=== PATIENT | male | born 1930 | race Caucasian/White ===

== ENCOUNTER 2018-05-17 12:27 | Emergency (ER) | payer OTHER ==
[~2018-05-17] VITALS: Ht 182.9 cm; Wt 78.5 kg
[~2018-05-17 12:27] MED LIST: ACET325 PO; ASPI325 PO; ASPI325EC PO; ATOR20 PO; ATOR40TA PO; Antivert12.5 MG PO; B Complete1 EACH PO; B-121000 MC2 PO; BETA1 PO; BUDE6HFA; BUDE6HFA INH; CALMAGZIN PO; CITA20 PO; Coumadin5 MG PO; Fabb Tablet1 EACH PO; I VITE PROTECT PO; MELA3 PO; MOME220I IH; PRED1SU OD; Prednisone20 MG PO; UBID10 PO; VIT1CAPS12 PO; WARF7.5 PO; Zithromax250 MG PO
[2018-05-17] MEDS ORDERED: Robaxin500 MG PO (14:47)
[2018-05-17] MEDS ORDERED: HYDR1TAB94 PO (14:47)
== END 2018-05-17 15:21 | disposition home or self-care (01) ==
LOC: ER 12:27
DX: S09.90XA Unspecified injury of head, initial encounter (principal); S22.41XA Multiple fractures of ribs, right side, initial encounter for closed fracture; Z88.6 Allergy status to analgesic agent; Z88.5 Allergy status to narcotic agent; Z79.899 Other long term (current) drug therapy; W01.0XXA Fall on same level from slipping, tripping and stumbling without subsequent striking against object, initial encounter
CPT/HCPCS: 70450; 71101; 72125; 99284-25

== ENCOUNTER 2018-08-30 07:42 | Emergency (ER) | payer OTHER ==
[~2018-08-30] VITALS: Ht 182.9 cm; Wt 77.1 kg
[~2018-08-30 07:42] MED LIST changes: +HYDR1TAB94 PO; +Robaxin500 MG PO
[2018-08-30] MEDS ORDERED: LO-DOSE ASPIRIN81 MG PO (08:07)
[2018-08-30 08:35] LABS: BASOPHILS ABSOLUTE AUTO 0.05 K/mm3 (0.00-0.23); BASOPHILS PERCENT AUTO 1 % (0-2); EOSINOPHILS ABSOLUTE AUTO 0.14 K/mm3 (0.00-0.68); EOSINOPHILS PERCENT AUTO 2 % (0-6); Hematocrit 40.1 % (37.0-53.0); Hemoglobin 13.4 g/dL (13.5-17.5); IMMATURE GRAN ABSOLUTE AUTO 0.01 K/mm3 (0.00-0.10); IMMATURE GRAN PERCENT AUTO 0 % (0-1); LYMPHOCYTES ABSOLUTE AUTO 1.95 K/mm3 (0.84-5.20); LYMPHOCYTES PERCENT AUTO 33 % (21-46); MONOCYTES ABSOLUTE AUTO 0.66 K/mm3 (0.16-1.47); MONOCYTES PERCENT AUTO 11 % (4-13); Mean Corpuscular HGB 33.3 pg (26.0-34.0); Mean Corpuscular HGB Conc 33.4 g/dL (31.5-36.5); Mean Corpuscular Volume 100 fL (80-100); Mean Platelet Volume 10.5 fL (9.1-12.4); NEUTROPHILS ABSOLUTE AUTO 3.04 K/mm3 (1.96-9.15); NEUTROPHILS PERCENT AUTO 52 % (41-73); Platelet Count 143 K/mm3 (150-400); RDW Standard Deviation 47.8 fL (35.1-46.3); Red Blood Cell Count 4.02 M/mm3 (4.30-5.90); White Blood Cell Count 5.85 K/mm3 (4.00-11.30)
[2018-08-30 08:48] LABS: Troponin I <0.015 ng/mL (0.000-0.040)
[2018-08-30 08:49] LABS: Alanine Aminotransfer (ALT/SGP 23 U/L (12-78); Albumin, Blood 3.4 g/dL (3.4-5.0); Alk Phos 105 U/L (50-136); Anion Gap 4 mmol/L (6-16); Aspartate Aminotrans (AST/SGOT 20 U/L (12-37); Bilirubin, Total 0.6 mg/dL (0.1-1.0); Blood Urea Nitrogen 17 mg/dL (8-24); Bun/Creatinine Ratio 18.1 (12.0-20.0); CO2, Blood 26 mmol/L (21-32); Calcium, Blood 8.3 mg/dL (8.5-10.1); Chloride, Blood 109 mmol/L (98-108); Creatinine, Blood 0.94 mg/dL (0.60-1.20); Globulin, Blood 3.5 g/dL (2.2-4.0); Glomerular Filtration Rate >60 (60-); Glucose, Blood 89 mg/dL (70-99); Potassium, Blood 4.2 mmol/L (3.5-5.5); Sodium, Blood 139 mmol/L (136-145); Total Protein, Blood 6.9 g/dL (6.4-8.2)
== END 2018-08-30 11:16 | disposition home or self-care (01) ==
LOC: ER 07:42
PROVIDERS: Emergency Medicine
DX: F41.9 Anxiety disorder, unspecified (principal); E86.0 Dehydration; Z95.1 Presence of aortocoronary bypass graft; Z88.6 Allergy status to analgesic agent; Z88.5 Allergy status to narcotic agent; Z79.899 Other long term (current) drug therapy; Z79.82 Long term (current) use of aspirin
CPT/HCPCS: 36415; 71046; 80053; 83690; 83880; 84443; 84484; 85025; 93005; 93010; 96360; 99285-25; J7030

== ENCOUNTER 2019-05-26 10:29 | Inpatient (IN) | payer OTHER ==
[~2019-05-26] VITALS: Ht 182.9 cm; Wt 71.2 kg
[~2019-05-26 10:29] MED LIST changes: -ATOR20 PO; -BUDE6HFA INH; -CALMAGZIN PO; -Fabb Tablet1 EACH PO; -UBID10 PO; -VIT1CAPS12 PO
[2019-05-26 11:45] LABS: BASOPHILS ABSOLUTE AUTO 0.03 K/mm3 (0.00-0.23); BASOPHILS PERCENT AUTO 1 % (0-2); EOSINOPHILS ABSOLUTE AUTO 0.03 K/mm3 (0.00-0.68); EOSINOPHILS PERCENT AUTO 1 % (0-6); Hematocrit 34.5 % (37.0-53.0); Hemoglobin 11.2 g/dL (13.5-17.5); IMMATURE GRAN ABSOLUTE AUTO 0.01 K/mm3 (0.00-0.10); IMMATURE GRAN PERCENT AUTO 0 % (0-1); LYMPHOCYTES ABSOLUTE AUTO 0.75 K/mm3 (0.84-5.20); LYMPHOCYTES PERCENT AUTO 13 % (21-46); MONOCYTES ABSOLUTE AUTO 0.49 K/mm3 (0.16-1.47); MONOCYTES PERCENT AUTO 9 % (4-13); Mean Corpuscular HGB 33.4 pg (26.0-34.0); Mean Corpuscular HGB Conc 32.5 g/dL (31.5-36.5); Mean Corpuscular Volume 103 fL (80-100); Mean Platelet Volume 10.3 fL (9.1-12.4); NEUTROPHILS ABSOLUTE AUTO 4.47 K/mm3 (1.96-9.15); NEUTROPHILS PERCENT AUTO 77 % (41-73); Platelet Count 161 K/mm3 (150-400); RDW Coefficient Variation 13.5 % (11.7-14.2); RDW Standard Deviation 50.9 fL (35.1-46.3); Red Blood Cell Count 3.35 M/mm3 (4.30-5.90); White Blood Cell Count 5.78 K/mm3 (4.00-11.30)
[2019-05-26 12:08] LABS: Alanine Aminotransfer (ALT/SGP 22 U/L (12-78); Albumin, Blood 2.9 g/dL (3.4-5.0); Albumin/Globulin Ratio 0.9 (0.8-1.8); Alk Phos 85 U/L (50-136); Anion Gap 7 mmol/L (6-16); Aspartate Aminotrans (AST/SGOT 20 U/L (12-37); Bilirubin, Total 0.4 mg/dL (0.1-1.0); Blood Urea Nitrogen 14 mg/dL (8-24); Bun/Creatinine Ratio 15.8 (12.0-20.0); CO2, Blood 23 mmol/L (21-32); Calcium, Blood 8.2 mg/dL (8.5-10.1); Chloride, Blood 110 mmol/L (98-108); Creatinine, Blood 0.89 mg/dL (0.60-1.20); Globulin, Blood 3.3 g/dL (2.2-4.0); Glomerular Filtration Rate >60 (60-); Glucose, Blood 117 mg/dL (70-99); Potassium, Blood 4.6 mmol/L (3.5-5.5); Sodium, Blood 140 mmol/L (136-145); Total Protein, Blood 6.2 g/dL (6.4-8.2); Troponin I <0.015 ng/mL (0.000-0.040)
[2019-05-26] MEDS ORDERED: ATOR20 PO (15:05)
[2019-05-26] MEDS ORDERED: VIT1CAPS12 PO (15:05)
[2019-05-26] MEDS ORDERED: BUDE6HFA INH (15:05)
[2019-05-26] MEDS ORDERED: CO Q-10100 MG PO (15:06)
[2019-05-26] MEDS ORDERED: ASPIR 8181 M1 PO (15:07)
[2019-05-26] MEDS ORDERED: ALBU90OI INH (15:08)
[2019-05-26] MEDS ORDERED: CITA20 PO (15:08)
[2019-05-26] MEDS ORDERED: THERA-D2000 UNIT PO (15:09)
[2019-05-26] MEDS ORDERED: VIRT-GARD TABL1 EACH PO (15:12)
[2019-05-26] MEDS ORDERED: Calcium-Magnes1 EAC6 PO (15:13)
[2019-05-26] MEDS ORDERED: LINZESS145 MCG PO (15:22)
[2019-05-26] MEDS ORDERED: MELATONIN 5 MG1 EACH PO (15:23)
--- NOTE | 2019-05-26 18:56 | NUR ---
PT RECEIVED FROM [facility] REPORT RECEIVED FROM ARLEEN COLMENARES, PT IS HERE FOR CHF EXACERBATION AND SOB. PT RECEIVED AT @1825, HRR SINUS TACHY ON 130'S, THE REST OF THE VITALS STABLE. PT ALERT WITH SOME CONFUSION. ABLE TO MAKE NEEDS KNOWN. PT CURRENTLY IN BED AT THIS TIME WITH NO COMPLAINTS. TO REPORT TO ONCOMING SHIFT.
[2019-05-27 04:25] LABS: Anion Gap 5 mmol/L (6-16); Blood Urea Nitrogen 13 mg/dL (8-24); Bun/Creatinine Ratio 11.9 (12.0-20.0); CO2, Blood 28 mmol/L (21-32); Calcium, Blood 8.3 mg/dL (8.5-10.1); Chloride, Blood 107 mmol/L (98-108); Creatinine, Blood 1.09 mg/dL (0.60-1.20); Glomerular Filtration Rate >60 (60-); Glucose, Blood 96 mg/dL (70-99); Sodium, Blood 140 mmol/L (136-145)
--- NOTE | 2019-05-27 07:31 | NUR ---
SHIFT SUMMARY PT A&O; PLEASANT & COMPLIANT W/ CARE; SOME FORGETFULNESS NOTED; VSS; DENIES CHEST PAIN; O2 SATS >93 ON RA; LUNG SOUNDS CLEAR; PT SLEPT SEVERAL HOURS IN BETWEEN INTERVENTIONS; SBA TO BATRHOOM FOR BM; OTHERWISE STANDS AT BEDSIDE FOR URINAL; DENIES NEEDS AT THIS TIME; CALL LIGHT IN REACH; BED IN LOWEST POSITION; REPORT GIVEN TO DAY SHIFT RN.
--- NOTE | 2019-05-27 11:23 | NUR ---
Echocardiogram using 0.50ml of Definity contrast performed.
--- NOTE | 2019-05-27 14:19 | NUR ---
Dual chamber pacemaker interogaton with Dr Acharya present, appears pt in AFIB/Flutter w RVR, pacemaker working normally. Report in Paceart/Hester routed to Dr Castro
[2019-05-27 15:11] LABS: Source, Urine Clean Catch
[2019-05-27 15:20] LABS: Bilirubin, Urine Neg (Neg); Blood, Urine Neg (Neg); Glucose Qualitative, Urine Neg (Neg); Ketones, Urine Neg (Neg); Leukocyte Esterase, Urine Neg (Neg); Nitrite, Urine Neg (Neg); Protein, Urine Neg (Neg); Urobilinogen, Urine NORM (Normal); pH, Urine 6.5 (5.0-8.0)
--- NOTE | 2019-05-27 15:31 | NUR ---
Patient gives this student nurse permission to assist in his care 05/28/2019
[2019-05-27 15:34] LABS: Appearance, Urine Clear (Clear); Color, Urine Yellow (P-Yellow)
--- NOTE | 2019-05-27 19:10 | NUR ---
ASSUMED CARE REPORT RECEIVED FROM DEDRA SALGUERO. ASSUMED CARE OF PT. SITTING UP IN BED COMFORTABLY AT THIS TIME, IN NO ACUTE DISTRESS. DENIES CP, PRESSURE OR SOB AT THIS TIME. DENIES ANY NEEDS. CALL LIGHT AND POSSESSIONS IN REACH, WILL CONTINUE TO MONITOR.
--- NOTE | 2019-05-27 19:58 | NUR ---
SHIFT SUMMARY: PT ALERT WITH CONFUSION. PT HRR REMAINS ON ST/WIDE COMPLEX TACHY 120'S-130'S PT DENIES ANY CHEST PAIN, SLIGHT SOB, PT WAS PUT ON 2L FOR O2 SUPPORT SATS KEPT ABOVE 90%. PT ON IV LASIX FOR DIURESIS, CONDOM CATH WAS PUT IN PLACE PT HAD MULTIPLE ATTEMPTS OF AMBULATING WIHOUT ASSISTS TO THE BATHROOM, DR COLON ORDERING PROVIDER. DR MERCADO WAS CONSULTED FOR CARDIO, 2D ECHO WAS DONE SHOWING 35% EF, ORDER RECEIVED TO GET PACEMAKER CHECKED, PLAN TO DO CARDIOVERSION IN THE AM, PT TO BE NPO AFTER MIDNIGHT. IS AWARE. PT CURRENTLY RESITNG IN BED CALL LIGHTS WITHIN REACH WILL MONITOR.
[2019-05-28 04:53] LABS: BASOPHILS ABSOLUTE AUTO 0.04 K/mm3 (0.00-0.23); BASOPHILS PERCENT AUTO 1 % (0-2); EOSINOPHILS ABSOLUTE AUTO 0.05 K/mm3 (0.00-0.68); EOSINOPHILS PERCENT AUTO 1 % (0-6); Hematocrit 32.5 % (37.0-53.0); Hemoglobin 10.7 g/dL (13.5-17.5); IMMATURE GRAN ABSOLUTE AUTO 0.01 K/mm3 (0.00-0.10); IMMATURE GRAN PERCENT AUTO 0 % (0-1); LYMPHOCYTES ABSOLUTE AUTO 1.29 K/mm3 (0.84-5.20); LYMPHOCYTES PERCENT AUTO 26 % (21-46); MONOCYTES ABSOLUTE AUTO 0.63 K/mm3 (0.16-1.47); MONOCYTES PERCENT AUTO 13 % (4-13); Mean Corpuscular HGB 33.4 pg (26.0-34.0); Mean Corpuscular HGB Conc 32.9 g/dL (31.5-36.5); Mean Corpuscular Volume 102 fL (80-100); NEUTROPHILS ABSOLUTE AUTO 3.03 K/mm3 (1.96-9.15); NEUTROPHILS PERCENT AUTO 60 % (41-73); Platelet Count 143 K/mm3 (150-400); RDW Coefficient Variation 13.3 % (11.7-14.2); RDW Standard Deviation 49.8 fL (35.1-46.3); White Blood Cell Count 5.05 K/mm3 (4.00-11.30)
[2019-05-28 05:18] LABS: Magnesium, Blood 2.1 mg/dL (1.6-2.4)
[2019-05-28 05:29] LABS: Alanine Aminotransfer (ALT/SGP 18 U/L (12-78); Albumin, Blood 2.6 g/dL (3.4-5.0); Albumin/Globulin Ratio 0.8 (0.8-1.8); Alk Phos 76 U/L (50-136); Anion Gap 8 mmol/L (6-16); Aspartate Aminotrans (AST/SGOT 16 U/L (12-37); Bilirubin, Total 0.5 mg/dL (0.1-1.0); Blood Urea Nitrogen 17 mg/dL (8-24); Bun/Creatinine Ratio 14.2 (12.0-20.0); CO2, Blood 26 mmol/L (21-32); Calcium, Blood 8.1 mg/dL (8.5-10.1); Chloride, Blood 106 mmol/L (98-108); Globulin, Blood 3.3 g/dL (2.2-4.0); Glomerular Filtration Rate >60 (60-); Glucose, Blood 91 mg/dL (70-99); Potassium, Blood 3.6 mmol/L (3.5-5.5); Sodium, Blood 140 mmol/L (136-145); Total Protein, Blood 5.9 g/dL (6.4-8.2)
[2019-05-28 05:49] LABS: International Normalized Ratio 1.26; Prothrombin Time Results 13.3 Sec (9.7-11.5)
--- NOTE | 2019-05-28 06:10 | NUR ---
SHIFT SUMMARY: PT RESTING COMFORTABLY, IN NO ACUTE DISTRESS. WAS MONITORED EVERY 1-2 HOURS WITH NEEDS MET. SLEPT T/O NIGHT. PT REMOVED CONDOM CATHETER, HAS BEEN CALLING APPROPRIATELY TO USE THE URINAL. NO OTHER ACUTE EVENTS DURING THE NIGHT, VS AND O2 SATS STABLE. DENIES ANY NEEDS, ATTEMPTING TO SLEEP AT THIS TIME. CALL LIGHT AND POSSESSIONS IN REACH, BED ALARM ACTIVATED. WILL CONTINUE TO MONITOR UNTIL REPORT GIVEN TO ONCOMING RN.
--- NOTE | 2019-05-28 20:05 | NUR ---
SHIFT SUMMARY: TAYE PROCEDURE DONE TODAY WITHOUT CARDIOVERSION, THROMBUS FOUND IN THE HEART. PT ON BLOOD THINNERS AND TOPROL FOR HEART RATE. PT AFLUTTER ON HRR 120'S FOR THE SHIFT. PT DENIES CHEST PAIN/. SATS ABOVE 90% ON 2L. PT HAS BEEN RESTING IN BED MOST OF THE SHIFT. NO OTHER ISSUES ENCOUNTERED REPORT GIVEN TO ONCOMING SHIFT NURSE.
[2019-05-29 04:31] LABS: BASOPHILS ABSOLUTE AUTO 0.03 K/mm3 (0.00-0.23); BASOPHILS PERCENT AUTO 1 % (0-2); EOSINOPHILS ABSOLUTE AUTO 0.08 K/mm3 (0.00-0.68); EOSINOPHILS PERCENT AUTO 2 % (0-6); Hematocrit 34.5 % (37.0-53.0); Hemoglobin 11.2 g/dL (13.5-17.5); IMMATURE GRAN PERCENT AUTO 0 % (0-1); LYMPHOCYTES ABSOLUTE AUTO 1.18 K/mm3 (0.84-5.20); LYMPHOCYTES PERCENT AUTO 22 % (21-46); MONOCYTES ABSOLUTE AUTO 0.55 K/mm3 (0.16-1.47); MONOCYTES PERCENT AUTO 11 % (4-13); Mean Corpuscular HGB Conc 32.5 g/dL (31.5-36.5); Mean Corpuscular Volume 102 fL (80-100); Mean Platelet Volume 10.7 fL (9.1-12.4); NEUTROPHILS ABSOLUTE AUTO 3.42 K/mm3 (1.96-9.15); NEUTROPHILS PERCENT AUTO 65 % (41-73); Platelet Count 153 K/mm3 (150-400); RDW Coefficient Variation 13.1 % (11.7-14.2); Red Blood Cell Count 3.39 M/mm3 (4.30-5.90); White Blood Cell Count 5.26 K/mm3 (4.00-11.30)
[2019-05-29 04:55] LABS: Albumin, Blood 2.6 g/dL (3.4-5.0); Anion Gap 7 mmol/L (6-16); Blood Urea Nitrogen 21 mg/dL (8-24); Bun/Creatinine Ratio 18.3 (12.0-20.0); CO2, Blood 28 mmol/L (21-32); Calcium, Blood 8.2 mg/dL (8.5-10.1); Chloride, Blood 104 mmol/L (98-108); Creatinine, Blood 1.15 mg/dL (0.60-1.20); Glomerular Filtration Rate >60 (60-); Glucose, Blood 80 mg/dL (70-99); Phosphorus, Blood 4.5 mg/dL (2.5-4.9); Potassium, Blood 3.4 mmol/L (3.5-5.5); Sodium, Blood 139 mmol/L (136-145)
--- NOTE | 2019-05-29 05:54 | NUR ---
SHIFT SUMMARY PT SLEEPING IN ROOM COMFORTABLY AT THIS TIME. PT SLEPT WELL T/O NIGHT. NO ACUTE CHANGES IN STATUS. PT DENIED ANY CP OR SOB T/O NIGHT. DENIED OTHER PAIN. PT SATURATED ATTENDS TWICE DURING NIGHT, DID NOT USE CALL LIGHT. NEW ATTENDS IN PLACE, C/D/I. RESP EVEN UNLABORED ON 2L NC W/ SATS >92%. DENIES OTHER NEEDS. CALL LIGHT IN REACH. WILL GIVE BEDSIDE REPORT TO ONCOMING RN.
--- NOTE | 2019-05-29 08:50 | NUR ---
DR QUIÑONES AT BEDSIDE STS PT CAN BE MADE MEDICAL STATUS WITH TELE
--- NOTE | 2019-05-29 09:12 | NUR ---
patient gave permission to give meds 05/29/19
--- NOTE | 2019-05-29 11:25 | NUR ---
REPORT TO DIVYA COLMENARES ON MEDICAL
--- NOTE | 2019-05-29 18:36 | NUR ---
SHIFT SUMMARY PATIENT DENIES PAIN AND NAUSEA. REPORTS OCCASSIONAL SHORTNESS OF BREATH, ALTHOUGH OXYGEN SATURATION IS ABOVE 92% ON ROOM AIR. 2L/02 NC PRN. PT AND OT WORKED WITH PATIENT TODAY, PATIENT UP SBA IN ROOM. UP IN CHAIR FOR MEALS. AT BEDSIDE. CALL LIGHT IN REACH.
--- NOTE | 2019-05-30 04:47 | NUR ---
SHIFT SUMMARY PT IS PLEASANT AND COOPERATIVE WITH CARE. CONTINUES TO BE IN AFIB. HE WAS GIVEN METOPROLOL 25 PO FOR RAPID HEART RATE ON PRIOR SHIFT. EVENING VITALS SHOWED HR IN THE 60'S HOWEVER HIS BLOOD PRESSURE CAME DOWN INTO THE 80'S SYSTOLIC. CALLED TO HOSPITALIST AND GOT ORDER FOR FLUID BOLUS 500ML. PT WAS ASYMPTOMATIC FOR LOW BP. SINCE THEN HR HAS INCREASED TO BETWEEN 90'S-120'S AND BP HAS INCREASED TO OVER 100 SYSTOLIC. PT HAS DENIED ANY DISCOMFORT, SOB, OR DIZZINESS. HE IS PRESENTLY SLEEPING AND APPEARS IN NO ACUTE DISTRESS. AWAKENS EASILY TO VOICE. WILL CONTINUE TO MONITOR.
[2019-05-30 05:19] LABS: BASOPHILS ABSOLUTE AUTO 0.03 K/mm3 (0.00-0.23); BASOPHILS PERCENT AUTO 1 % (0-2); EOSINOPHILS ABSOLUTE AUTO 0.08 K/mm3 (0.00-0.68); EOSINOPHILS PERCENT AUTO 2 % (0-6); Hematocrit 33.6 % (37.0-53.0); Hemoglobin 10.9 g/dL (13.5-17.5); IMMATURE GRAN ABSOLUTE AUTO 0.01 K/mm3 (0.00-0.10); IMMATURE GRAN PERCENT AUTO 0 % (0-1); LYMPHOCYTES ABSOLUTE AUTO 1.45 K/mm3 (0.84-5.20); LYMPHOCYTES PERCENT AUTO 32 % (21-46); MONOCYTES ABSOLUTE AUTO 0.55 K/mm3 (0.16-1.47); MONOCYTES PERCENT AUTO 12 % (4-13); Mean Corpuscular HGB 33.2 pg (26.0-34.0); Mean Corpuscular HGB Conc 32.4 g/dL (31.5-36.5); Mean Corpuscular Volume 102 fL (80-100); Mean Platelet Volume 11.2 fL (9.1-12.4); NEUTROPHILS ABSOLUTE AUTO 2.39 K/mm3 (1.96-9.15); NEUTROPHILS PERCENT AUTO 53 % (41-73); Platelet Count 150 K/mm3 (150-400); RDW Coefficient Variation 13.1 % (11.7-14.2); RDW Standard Deviation 48.9 fL (35.1-46.3); Red Blood Cell Count 3.28 M/mm3 (4.30-5.90); White Blood Cell Count 4.51 K/mm3 (4.00-11.30)
[2019-05-30 05:38] LABS: Albumin, Blood 2.4 g/dL (3.4-5.0); Anion Gap 6 mmol/L (6-16); Blood Urea Nitrogen 21 mg/dL (8-24); Bun/Creatinine Ratio 20.2 (12.0-20.0); CO2, Blood 26 mmol/L (21-32); Calcium, Blood 7.8 mg/dL (8.5-10.1); Chloride, Blood 109 mmol/L (98-108); Creatinine, Blood 1.04 mg/dL (0.60-1.20); Glomerular Filtration Rate >60 (60-); Glucose, Blood 79 mg/dL (70-99); Phosphorus, Blood 3.3 mg/dL (2.5-4.9); Potassium, Blood 3.7 mmol/L (3.5-5.5); Sodium, Blood 141 mmol/L (136-145)
[2019-05-30 14:19] LABS: Percent Saturation 15.8 % (20.0-50.0)
--- NOTE | 2019-05-30 16:20 | NUR ---
TIME CLOCK MECHANIC CALLED PRIMARY NURSE CECY THAT PT SUSTAINING HEART RATE IN 130'S AND SHOWING SVT. THIS RN (EARL) NOTIFIED PER 'S REQUEST. NO NEW ORDERS GIVEN AT THIS TIME. PT ASYMPTOMATIC. NO SOB. BP STABLE. WILL CONTINUE TO MONITOR.
--- NOTE | 2019-05-30 16:48 | NUR ---
SHIFT SUMMARY PT A&O, PT HAD COMPLIANTS OF FEELING WEEKNESS AND OCCASIONAL SOB, VITALS CHECKED AND STABLE. PT DENSIE PAIN AND NAUSEA THIS SHIFT. SHRIMP PICKER CALLED AND REPORT SVT WITH A RATE 130 PT ASYMPTOMATIC AND NOTIFIED PER LOGAN COLMENARES. PT AT BED SIDE. PT REPORTS OCCASIONAL BLOOD IN URINE, PT STATES "I MAY HAVE SCRAPED ON URINAL" WILL COUNTINUE TO MONITOR. SPEECH EVAL PERFORMED THIS SHIFT AND SWALLOW PERCAUTIONS IN PLACE. PT AMBULATED WITH FWW AND GAIT BELT TO RR. PT HAS CALL LIGHT WITH IN REACH AND BED ALARM IN PLACE. WILL REPORT TO ONCOMING SHIFT.
[2019-05-31 04:49] LABS: BASOPHILS ABSOLUTE AUTO 0.04 K/mm3 (0.00-0.23); BASOPHILS PERCENT AUTO 1 % (0-2); EOSINOPHILS ABSOLUTE AUTO 0.09 K/mm3 (0.00-0.68); EOSINOPHILS PERCENT AUTO 2 % (0-6); Hematocrit 35.1 % (37.0-53.0); Hemoglobin 11.6 g/dL (13.5-17.5); IMMATURE GRAN ABSOLUTE AUTO 0.01 K/mm3 (0.00-0.10); IMMATURE GRAN PERCENT AUTO 0 % (0-1); LYMPHOCYTES ABSOLUTE AUTO 1.53 K/mm3 (0.84-5.20); LYMPHOCYTES PERCENT AUTO 32 % (21-46); MONOCYTES ABSOLUTE AUTO 0.53 K/mm3 (0.16-1.47); MONOCYTES PERCENT AUTO 11 % (4-13); Mean Corpuscular HGB 33.2 pg (26.0-34.0); Mean Corpuscular Volume 101 fL (80-100); Mean Platelet Volume 10.5 fL (9.1-12.4); NEUTROPHILS ABSOLUTE AUTO 2.66 K/mm3 (1.96-9.15); NEUTROPHILS PERCENT AUTO 55 % (41-73); Platelet Count 173 K/mm3 (150-400); RDW Coefficient Variation 13.2 % (11.7-14.2); RDW Standard Deviation 48.8 fL (35.1-46.3); Red Blood Cell Count 3.49 M/mm3 (4.30-5.90); White Blood Cell Count 4.86 K/mm3 (4.00-11.30)
[2019-05-31 05:09] LABS: Anion Gap 6 mmol/L (6-16); Blood Urea Nitrogen 22 mg/dL (8-24); Bun/Creatinine Ratio 22.1 (12.0-20.0); CO2, Blood 25 mmol/L (21-32); Calcium, Blood 8.1 mg/dL (8.5-10.1); Chloride, Blood 108 mmol/L (98-108); Creatinine, Blood 0.99 mg/dL (0.60-1.20); Glomerular Filtration Rate >60 (60-); Glucose, Blood 90 mg/dL (70-99); Potassium, Blood 3.8 mmol/L (3.5-5.5); Sodium, Blood 139 mmol/L (136-145)
--- NOTE | 2019-05-31 08:10 | NUR ---
SHIFT SUMMARY PT IS PLEASANT AND COOPERATIVE WITH CARE. HE HAS SLEPT ON AND OFF THIS NIGHT. UP TO RESTROOM OR TO USE URINAL SEVERAL TIMES. NO COMPLAINTS OF PAIN BUT IS VERY TIRED AND RELATES HE GETS VERY POOR SLEEP IN HOSPITAL. NO ACUTE CHANGES THIS NIGHT. REPORT TO ONCALICIA RN.
[2019-05-31] MEDS ORDERED: LANOXIN125 MCG PO (13:52)
[2019-05-31] MEDS ORDERED: Bumetanide1 MG PO (13:52)
[2019-05-31] MEDS ORDERED: Benadryl Itch28.3 G1 TOP (13:53)
[2019-05-31] MEDS ORDERED: MILK OF MA400 MG/5 M PO (13:58)
[2019-05-31] MEDS ORDERED: GAVILAX17 GM PO (13:59)
[2019-05-31] MEDS ORDERED: METO50ER PO (13:59)
[2019-05-31] MEDS ORDERED: POTCHL20ER PO (14:00)
[2019-05-31] MEDS ORDERED: XARELTO15 MG PO (14:00)
--- NOTE | 2019-05-31 15:09 | NUR ---
SPOKE WITH DR. HEADLEY, GAVE SHORT UPDATE ON PT AT THIS TIME. AGREES WITH ALLOWING PT TO GO HOME.
--- NOTE | 2019-05-31 15:32 | NUR ---
DISCHARGE DISCHARGE TEACHING PROVIDED TO PT AND FAMILY, ALL QUESTIONS ANSWERED. PT VSS. PT AND FAMILY AT BEDSIDE. IV REMOVED AND PT WHEELED OUT OF HOSPITAL IN WC TO PRIVATE CAR. NO HOME O2 REQUIRED PER EVAL. PT BELONGINGS SENT WITH PT.
--- NOTE | 2019-05-31 21:20 | NUR ---
PT CALLED WITH QUESTIONS ABOUT DISCHARGE MEDS.
== END 2019-05-31 16:21 | disposition home health service (06) | DRG 291 ==
LOC: ER 10:29 → MEDS 10:30 → PCU 18:24 → MEDS 05-27 15:52 → PCU 05-27 15:52 → MEDS 05-29 11:46
PROVIDERS: Emergency Medicine; Internal Medicine; Internal Medicine Interventional Cardiology; ADMIT Internal Medicine
DX: I11.0 Hypertensive heart disease with heart failure (principal); I50.21 Acute systolic (congestive) heart failure; J96.01 Acute respiratory failure with hypoxia; I48.92 Unspecified atrial flutter; I25.10 Atherosclerotic heart disease of native coronary artery without angina pectoris; E87.6 Hypokalemia; D64.9 Anemia, unspecified; R26.9 Unspecified abnormalities of gait and mobility; I51.3 Intracardiac thrombosis, not elsewhere classified; F41.0 Panic disorder [episodic paroxysmal anxiety]; E78.5 Hyperlipidemia, unspecified; N40.0 Benign prostatic hyperplasia without lower urinary tract symptoms; I95.9 Hypotension, unspecified; J45.909 Unspecified asthma, uncomplicated; Z66 Do not resuscitate; Z95.1 Presence of aortocoronary bypass graft; Z95.2 Presence of prosthetic heart valve; Z95.0 Presence of cardiac pacemaker; Z86.718 Personal history of other venous thrombosis and embolism; Z79.82 Long term (current) use of aspirin
CPT/HCPCS: 36415; 71045; 80048; 80053; 80069; 81003; 82728; 82947; 83540; 83550; 83735; 83880; 84443; 84484; 85025; 85610; 92526; 92610; 93005; 93010; 93288; 93312; 93325; 94640; 94760; 96372-59; 96374-59; 96375-59; 96376; 97116; 97162; 97165; 97530; 97535; 99285-25; A9270-GY; C8929; G0378; J1650; J1940; J2250; J3010; J7030; Q9957

== ENCOUNTER 2020-01-21 15:54 | Emergency (ER) | payer OTHER ==
[~2020-01-21] VITALS: Ht 182.9 cm; Wt 74.8 kg
[~2020-01-21 15:54] MED LIST changes: +ALBU90OI INH; +ASPIR 8181 M1 PO; +ATOR20 PO; +BUDE6HFA INH; +Benadryl Itch28.3 G1 TOP; +Bumetanide1 MG PO; +CO Q-10100 MG PO; +Calcium-Magnes1 EAC6 PO; +GAVILAX17 GM PO; +LANOXIN125 MCG PO; +LINZESS145 MCG PO; +MELATONIN 5 MG1 EACH PO; +METO50ER PO; +MILK OF MA400 MG/5 M PO; +POTCHL20ER PO; +THERA-D2000 UNIT PO; +VIRT-GARD TABL1 EACH PO; +VIT1CAPS12 PO; +XARELTO15 MG PO
== END 2020-01-21 18:04 | disposition home or self-care (01) ==
LOC: ER 15:54
DX: S01.81XA Laceration without foreign body of other part of head, initial encounter (principal); I25.10 Atherosclerotic heart disease of native coronary artery without angina pectoris; J45.909 Unspecified asthma, uncomplicated; Z79.899 Other long term (current) drug therapy; Z79.82 Long term (current) use of aspirin; Z79.51 Long term (current) use of inhaled steroids; Z79.01 Long term (current) use of anticoagulants; Z86.718 Personal history of other venous thrombosis and embolism; Z95.0 Presence of cardiac pacemaker; Z95.1 Presence of aortocoronary bypass graft; Z23 Encounter for immunization; W01.0XXA Fall on same level from slipping, tripping and stumbling without subsequent striking against object, initial encounter
CPT/HCPCS: 12056; 70450; 90471; 99283-25

== ENCOUNTER 2020-01-22 03:36 | Emergency (ER) | payer OTHER ==
[~2020-01-22] VITALS: Ht 182.9 cm; Wt 72.6 kg
== END 2020-01-22 06:15 | disposition home or self-care (01) ==
LOC: ER 03:36
DX: S06.6X9A Traumatic subarachnoid hemorrhage with loss of consciousness of unspecified duration, initial encounter (principal); J45.909 Unspecified asthma, uncomplicated; I25.810 Atherosclerosis of coronary artery bypass graft(s) without angina pectoris; Z88.5 Allergy status to narcotic agent; Z88.6 Allergy status to analgesic agent; Z79.899 Other long term (current) drug therapy; Z79.51 Long term (current) use of inhaled steroids; Z79.82 Long term (current) use of aspirin; Z79.01 Long term (current) use of anticoagulants; Z86.718 Personal history of other venous thrombosis and embolism; Z95.0 Presence of cardiac pacemaker; W01.198A Fall on same level from slipping, tripping and stumbling with subsequent striking against other object, initial encounter; Y92.002 Bathroom of unspecified non-institutional (private) residence as the place of occurrence of the external cause
CPT/HCPCS: 70450; 99284-25

== ENCOUNTER → 2020-04-02 | Outpatient (CLI) | payer OTHER ==
[~2020-04-02] MED LIST changes: -BUDE6HFA INH; +Bumetanide0.5 MG PO; -Bumetanide1 MG PO; +CALCIUM CITRAT250 MG PO; +CEFP200 PO; -Calcium-Magnes1 EAC6 PO; -GAVILAX17 GM PO; +LOSA25 PO; +METO25ER PO; -METO50ER PO; +MIDO5 PO; +MIRALAX17 GM PO; +PRESERVISION A1 EACH PO; +SPIR25 PO; +SULTRIDS PO; +SYMBICORT 80-10.2 GM INH; +TAMS.4ER PO; -VIRT-GARD TABL1 EACH PO; -VIT1CAPS12 PO; +[UNRECOGNIZED DRUG - OTHER] PO
[2020-04-02 17:04] LABS: Source, Urine Clean Catch
[2020-04-02 17:53] LABS: Appearance, Urine Cloudy (Clear); Color, Urine Yellow (P-Yellow)
[2020-04-02 17:54] LABS: Bacteria Many /hpf; Bilirubin, Urine Neg (Neg); Blood, Urine 1+ (Neg); Glucose Qualitative, Urine Neg (Normal); Ketones, Urine Neg (Neg); Leukocyte Esterase, Urine 2+ (Neg); Nitrite, Urine Pos (Neg); Protein, Urine Trace (Neg); Red Blood Cells, Urine 0-2 /hpf (0-2); Squamous Epithelial Cells Few /hpf (Few); Triple Phosphate Crystals Many /hpf; Urobilinogen, Urine NORM (Normal)
== END | disposition home or self-care (01) ==
LOC: LAB EV 15:10 → LAB SHORT 15:10
PROVIDERS: Nurse Practitioner
DX: R30.9 Painful micturition, unspecified (principal)
CPT/HCPCS: 81001

== ENCOUNTER 2020-04-05 09:34 | Inpatient (IN) | payer OTHER ==
[~2020-04-05] VITALS: Ht 182.9 cm; Wt 72.6 kg
[~2020-04-05 09:34] MED LIST changes: -ALBU90OI INH; -ASPIR 8181 M1 PO; -ATOR20 PO; -Bumetanide0.5 MG PO; -CALCIUM CITRAT250 MG PO; -CEFP200 PO; -CO Q-10100 MG PO; -LANOXIN125 MCG PO; -LOSA25 PO; -METO25ER PO; -MIDO5 PO; -POTCHL20ER PO; -PRESERVISION A1 EACH PO; -SPIR25 PO; -SULTRIDS PO; -SYMBICORT 80-10.2 GM INH; -TAMS.4ER PO; -THERA-D2000 UNIT PO; -[UNRECOGNIZED DRUG - OTHER] PO
[2020-04-05 10:47] LABS: Source, Urine Catheter
[2020-04-05 11:06] LABS: Appearance, Urine Hazy (Clear); Bilirubin, Urine Neg (Neg); Blood, Urine 5+ (Neg); Color, Urine Yellow (P-Yellow); Glucose Qualitative, Urine Neg (Neg); Ketones, Urine Neg (Neg); Leukocyte Esterase, Urine 2+ (Neg); Nitrite, Urine Pos (Neg); Protein, Urine 2+ (Neg); Specific Gravity, Urine 1.015 (1.003-1.022); Urobilinogen, Urine 1+ (Normal)
[2020-04-05 11:06] LABS: BASOPHILS ABSOLUTE AUTO 0.05 K/mm3 (0.00-0.23); BASOPHILS PERCENT AUTO 1 % (0-2); EOSINOPHILS ABSOLUTE AUTO 0.06 K/mm3 (0.00-0.68); EOSINOPHILS PERCENT AUTO 1 % (0-6); Hematocrit 35.1 % (37.0-53.0); Hemoglobin 11.4 g/dL (13.5-17.5); IMMATURE GRAN ABSOLUTE AUTO 0.03 K/mm3 (0.00-0.10); IMMATURE GRAN PERCENT AUTO 0 % (0-1); LYMPHOCYTES ABSOLUTE AUTO 1.09 K/mm3 (0.84-5.20); LYMPHOCYTES PERCENT AUTO 14 % (21-46); MONOCYTES PERCENT AUTO 13 % (4-13); Mean Corpuscular HGB 32.4 pg (26.0-34.0); Mean Corpuscular HGB Conc 32.5 g/dL (31.5-36.5); Mean Corpuscular Volume 100 fL (80-100); Mean Platelet Volume 9.4 fL (9.1-12.4); NEUTROPHILS ABSOLUTE AUTO 5.77 K/mm3 (1.96-9.15); NEUTROPHILS PERCENT AUTO 72 % (41-73); Platelet Count 153 K/mm3 (150-400); RDW Coefficient Variation 12.8 % (11.7-14.2); RDW Standard Deviation 46.5 fL (35.1-46.3); Red Blood Cell Count 3.52 M/mm3 (4.30-5.90)
[2020-04-05 11:22] LABS: Alanine Aminotransfer (ALT/SGP 21 U/L (12-78); Albumin, Blood 2.6 g/dL (3.4-5.0); Albumin/Globulin Ratio 0.7 (0.8-1.8); Alk Phos 87 U/L (50-136); Anion Gap 6 mmol/L (6-16); Aspartate Aminotrans (AST/SGOT 22 U/L (12-37); Bilirubin, Total 0.5 mg/dL (0.1-1.0); Blood Urea Nitrogen 18 mg/dL (8-24); Bun/Creatinine Ratio 20.9 (12.0-20.0); CO2, Blood 23 mmol/L (21-32); Calcium, Blood 8.6 mg/dL (8.5-10.1); Chloride, Blood 109 mmol/L (98-108); Creatinine, Blood 0.86 mg/dL (0.60-1.20); Globulin, Blood 3.9 g/dL (2.2-4.0); Glomerular Filtration Rate >60 (60-); Glucose, Blood 91 mg/dL (70-99); Potassium, Blood 4.4 mmol/L (3.5-5.5); Sodium, Blood 138 mmol/L (136-145); Total Protein, Blood 6.5 g/dL (6.4-8.2)
[2020-04-05 11:24] LABS: White Blood Cells, Urine 50-100 /hpf (0-5)
[2020-04-05 11:25] LABS: Amorphous Mod (0-Heavy); Bacteria Many /hpf; Squamous Epithelial Cells Few /hpf (Few); Triple Phosphate Crystals Many /hpf
[2020-04-05] MEDS ORDERED: CEFP200 PO (11:57)
[2020-04-05] MEDS ORDERED: [UNRECOGNIZED DRUG - OTHER] PO (13:56)
[2020-04-05] MEDS ORDERED: MIDO5 PO (13:57)
[2020-04-05] MEDS ORDERED: CITA20 PO (13:59)
[2020-04-05] MEDS ORDERED: LANOXIN125 MCG PO (13:59)
[2020-04-05] MEDS ORDERED: METO25ER PO (14:00)
[2020-04-05] MEDS ORDERED: Bumetanide0.5 MG PO (14:01)
[2020-04-05] MEDS ORDERED: LOSA25 PO (14:02)
[2020-04-05] MEDS ORDERED: POTCHL20ER PO (14:03)
[2020-04-05] MEDS ORDERED: ALBU90OI INH (14:04)
[2020-04-05] MEDS ORDERED: SYMBICORT 80-10.2 GM INH (14:04)
[2020-04-05] MEDS ORDERED: THERA-D2000 UNIT PO (14:05)
[2020-04-05] MEDS ORDERED: ATOR20 PO (14:27)
[2020-04-05] MEDS ORDERED: PRESERVISION A1 EACH PO (14:27)
[2020-04-05] MEDS ORDERED: CO Q-10100 MG PO (14:28)
[2020-04-05] MEDS ORDERED: ASPIR 8181 M1 PO (14:28)
[2020-04-05] MEDS ORDERED: CALCIUM CITRAT250 MG PO (14:32)
--- NOTE | 2020-04-05 22:42 | NUR ---
ASSUMED CARE OF PATIENT AT APPROXIMATELY 1915 FROM BRUCE Ellsworth RN. PATIENT ALERT AND ORIENTED X4; FORGETFUL AT TIMES; ATTEMPTED TO AMBULATE WITH ASSISTANCE; 2 PERSON ASSIST DUE TO DECONDITIONED. PATIENT DENIES PAIN, NUMBNESS, TINGLING, DIZZINESS OR NAUSEA. AFIB ON TELE W/ RATE IN 90'S; OXYGEN SATUARTION ABOVE 90% ON ROOM AIR. URINARY CATHETER DRAINING AND PATENT; PATIENT HAD BM ON BEDSIDE COMMODE AT START OF SHIFT. PIV S/L. PATIENT CURRENTLY RESTING IN BED; CALL LIGHT IN REACH; BED IN LOWEST POSISTION; BED ALARM ON.
--- NOTE | 2020-04-06 06:15 | NUR ---
PATIENT SLEPT ABOUT NINE HOURS LAST NIGHT; REPOSISTIONED SELF. VSS. NO ACUTE CHANGES TO REPORT.
[2020-04-06 06:57] LABS: BASOPHILS ABSOLUTE AUTO 0.04 K/mm3 (0.00-0.23); BASOPHILS PERCENT AUTO 1 % (0-2); EOSINOPHILS ABSOLUTE AUTO 0.04 K/mm3 (0.00-0.68); EOSINOPHILS PERCENT AUTO 1 % (0-6); Hematocrit 32.9 % (37.0-53.0); Hemoglobin 10.5 g/dL (13.5-17.5); IMMATURE GRAN ABSOLUTE AUTO 0.02 K/mm3 (0.00-0.10); IMMATURE GRAN PERCENT AUTO 0 % (0-1); LYMPHOCYTES ABSOLUTE AUTO 1.19 K/mm3 (0.84-5.20); LYMPHOCYTES PERCENT AUTO 18 % (21-46); MONOCYTES ABSOLUTE AUTO 0.76 K/mm3 (0.16-1.47); MONOCYTES PERCENT AUTO 11 % (4-13); Mean Corpuscular HGB Conc 31.9 g/dL (31.5-36.5); Mean Corpuscular Volume 100 fL (80-100); Mean Platelet Volume 9.3 fL (9.1-12.4); NEUTROPHILS ABSOLUTE AUTO 4.72 K/mm3 (1.96-9.15); NEUTROPHILS PERCENT AUTO 70 % (41-73); Platelet Count 147 K/mm3 (150-400); RDW Coefficient Variation 12.6 % (11.7-14.2); RDW Standard Deviation 46.8 fL (35.1-46.3); Red Blood Cell Count 3.28 M/mm3 (4.30-5.90); White Blood Cell Count 6.77 K/mm3 (4.00-11.30)
[2020-04-06 07:16] LABS: Anion Gap 6 mmol/L (6-16); Blood Urea Nitrogen 17 mg/dL (8-24); Bun/Creatinine Ratio 19.2 (12.0-20.0); CO2, Blood 24 mmol/L (21-32); Calcium, Blood 8.2 mg/dL (8.5-10.1); Chloride, Blood 109 mmol/L (98-108); Creatinine, Blood 0.89 mg/dL (0.60-1.20); Glomerular Filtration Rate >60 (60-); Glucose, Blood 87 mg/dL (70-99); Potassium, Blood 4.1 mmol/L (3.5-5.5); Sodium, Blood 139 mmol/L (136-145)
--- NOTE | 2020-04-06 15:12 | NUR ---
ADMIT: 04/05/20 DISCHARGE: DX: Afib with RVR CC: NICHOLE CALL: RESIDENCE: Home with spouse CAREGIVER:Yulissa Sebastian, . DX: COPD, CT, Pacemaker, see list DME: Bedside Commode CCM: none HOME HEALTH: [facility]- 01/2020 SUMMARY: 04/06/20- per chart review with Dr. Dang, pt is very weak and on medication for his UTI. Will order PT to assess weakness. No est. ETA for d/c at this time. -kjw 1. Urinary tract infection with hematuria. This is actually what brought him to the ER. He was not able to urinate. Urine has been sent for culture. He has been started empirically on ceftriaxone. Does not appear to have any other kind of infection. His white count is normal. His lactic acid is normal. 2. Atrial fibrillation with rapid ventricular response, although the patient did not come in for the shortness of breath, on further discussion with him, he has been having trouble with shortness of breath, dizziness, weakness. No chest pain. Troponin I initially is negative, we will trend those. BNP is mildly elevated. I suspect he has some component of congestive heart failure due to the atrial fibrillation, flutter, this is despite taking digoxin and Toprol at home. We will try some IV Lopressor to get his heart rate under control. He will be admitted to PCU on cardiac monitoring. 3. Urinary frequency secondary to the urinary tract infection. He may benefit from some Flomax, after he is treated for the urinary tract infection, if it does not improve him symptomatically. 4. Generally he is deconditioning with multiple falls. We will have Physical Therapy work with him. 5. History of congestive heart failure. He may have a little fluid on board. His O2 saturation is fine. I think we need to get his heart rate under control and that should square things away. He has had problems with low blood pressure and actually is on midodrine on a p.r.n. basis. His last echo was in May 2019. At that point, his EF is only 35%. I think it is probably indicated to repeat the echo at this point, it has been quite a while, that can be done tomorrow hopefully after his heart rate is under improved control. 6. Subarachnoid hemorrhage. The patient cannot be on any kind of anticoagulation because of his risk of falls and the intracranial bleed. He does just take aspirin. 7. Anemia, mild, stable. 8. I certify the need for admission. I anticipate greater than 2 overnight stay. Code status is DNR. His is his alternative decision maker. They do have a POST and request limited additional interventions. I will have Palliative Care consult additionally. It sounds like ultimately his is going to need additional assistance at home, when he is ready to go home. This has been very very difficult for her, so we will have Hearing Aid Repair Technician work with the patient and his as well. His medications were reviewed and reconciled.
--- NOTE | 2020-04-06 19:47 | NUR ---
SHIFT SUMMARY NO ACUTE CHANGES NOTED THROUGH THE DAY. PT IS CURRENTLY RESTING QUIELTY, DENIES CP/SOB. PT HAS BEEN AFLUTTER/AFIB, HR RANGING BETEWEN 80-140 DEPENDING ON ACTIVITY. PT IS TOLERATING PO INTAKE, RAI REMAINS PATENT, DRAINING CLEAR,YELLOW URINE. PATIENT WAS ABLE TO WORK WITH PHYSICAL THERAPY TODAY. BED ALARM IS ON FOR SAFETY, REPORT HAS BEEN GIVEN TO HECTOR COLMENARES. CALL LIGHT IN REACH
--- NOTE | 2020-04-07 02:01 | NUR ---
ASSUMED CARE AT 1900. VERY SLEEPY AND A LITTLE FORGETFUL WHEN FIRST AWAKE . DENIES ANY DISCOMFORT WITH AFLUTTER AFIB HR AT 130. REPORTS NOT NOTICED AT ALL. RAI W/ CLEAR YELLOW URINE. LUNGS CLEAR. NO EDEMA.
[2020-04-07 04:12] LABS: BASOPHILS ABSOLUTE AUTO 0.03 K/mm3 (0.00-0.23); BASOPHILS PERCENT AUTO 1 % (0-2); EOSINOPHILS ABSOLUTE AUTO 0.06 K/mm3 (0.00-0.68); EOSINOPHILS PERCENT AUTO 1 % (0-6); Hematocrit 33.4 % (37.0-53.0); Hemoglobin 10.9 g/dL (13.5-17.5); IMMATURE GRAN ABSOLUTE AUTO 0.02 K/mm3 (0.00-0.10); IMMATURE GRAN PERCENT AUTO 0 % (0-1); LYMPHOCYTES ABSOLUTE AUTO 1.52 K/mm3 (0.84-5.20); LYMPHOCYTES PERCENT AUTO 25 % (21-46); MONOCYTES ABSOLUTE AUTO 0.95 K/mm3 (0.16-1.47); MONOCYTES PERCENT AUTO 16 % (4-13); Mean Corpuscular HGB 31.8 pg (26.0-34.0); Mean Corpuscular HGB Conc 32.6 g/dL (31.5-36.5); Mean Corpuscular Volume 97 fL (80-100); Mean Platelet Volume 9.6 fL (9.1-12.4); NEUTROPHILS ABSOLUTE AUTO 3.54 K/mm3 (1.96-9.15); NEUTROPHILS PERCENT AUTO 58 % (41-73); Platelet Count 155 K/mm3 (150-400); RDW Coefficient Variation 12.4 % (11.7-14.2); RDW Standard Deviation 44.7 fL (35.1-46.3); Red Blood Cell Count 3.43 M/mm3 (4.30-5.90); White Blood Cell Count 6.12 K/mm3 (4.00-11.30)
[2020-04-07 04:34] LABS: Alanine Aminotransfer (ALT/SGP 20 U/L (12-78); Albumin, Blood 2.4 g/dL (3.4-5.0); Albumin/Globulin Ratio 0.6 (0.8-1.8); Alk Phos 78 U/L (50-136); Anion Gap 9 mmol/L (6-16); Aspartate Aminotrans (AST/SGOT 27 U/L (12-37); Bilirubin, Total 0.6 mg/dL (0.1-1.0); Blood Urea Nitrogen 19 mg/dL (8-24); Bun/Creatinine Ratio 20.5 (12.0-20.0); CO2, Blood 25 mmol/L (21-32); Calcium, Blood 8.3 mg/dL (8.5-10.1); Chloride, Blood 105 mmol/L (98-108); Creatinine, Blood 0.93 mg/dL (0.60-1.20); Globulin, Blood 3.9 g/dL (2.2-4.0); Glomerular Filtration Rate >60 (60-); Glucose, Blood 97 mg/dL (70-99); Magnesium, Blood 2.2 mg/dL (1.6-2.4); Phosphorus, Blood 3.6 mg/dL (2.5-4.9); Potassium, Blood 3.6 mmol/L (3.5-5.5); Sodium, Blood 139 mmol/L (136-145); Total Protein, Blood 6.3 g/dL (6.4-8.2)
--- NOTE | 2020-04-07 06:01 | NUR ---
SHIFT SUMMARY. NO CHANGE FROM ABOVE NOTE. SLEPT WELL ALL NOC . HR RANGES 106, BUT THAT IS AT REST. CONT AFIB,.
--- NOTE | 2020-04-07 12:59 | NUR ---
Spiritual care visit conducted. Patient is sitting on chair and resting. Patient easily awakens to the sound of his name. Patient tells me that his reason for being in the hospital is that there is "something growing" in his bladder. Patient talks about his , Yulissa, of 54 yrs their 2 sons and 1 grandson. 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 He explains about his [employer] beliefs and that both he and Yulissa's families, as they were growing up, were [employer] as well, Patient shares personal information. I normalize patient's experience, and provide therapeutic listening and prayer. Patient responds well and shows signs of increased peace. Patient voices appreciation for the time and the prayer and states that it was very encouraging. I will continue to remain available to patient and family.
--- NOTE | 2020-04-07 15:32 | NUR ---
REPORT GIVEN TO DEDRA BRAXTON. PATIENT TRANSFERRED TO ROOM 325.
--- NOTE | 2020-04-07 18:26 | NUR ---
SHIFT SUMMARY- PT TRANSFERED FROM PCU AND HAS NOT HAD ANY ACUTE CHANGES. PT HAS TELE IV IS SL. PT HAS NOT GOTTEN OUT OF BED SINCE ARRIVAL ON MEDICAL FLOOR. PT SPOUSE WAS WITH HIM AT THE TIME OF TRANSFER, DR ROBLES WENT AND SPOKE TO HER TO GIVE HER AN UPDATE. PT HAS IRREGULAR HR ON TELE. PER PT SPOUSE HE HAS BEEN ORTHOSTATIC FOR QUITE A WHILE. STANDING BP'S AT HOME SBP WAS IN THE 60'S PER THE REPORTS FROM HIS SHE BROUGHT IN BOOKS OF BLOOD PRESSURES SHE HAS TAKEN THAT ARE CLEARLY DOCUMENTED DAYS AND TIMES AND POSITION PT WAS IN. SHE SHOWED THESE TO DR ROBLES. SPOUSE IS VERY INVOLVED IN THE PT HEALTH CARE NEEDS. PT CURRENTLY IN BED CALL LIGHT IN REACH NO S&S OF DISTRESS. WILL PASS ON TO NIGHT RN IN BEDSIDE REPORT.
[2020-04-08 05:12] LABS: BASOPHILS ABSOLUTE AUTO 0.03 K/mm3 (0.00-0.23); BASOPHILS PERCENT AUTO 1 % (0-2); EOSINOPHILS ABSOLUTE AUTO 0.18 K/mm3 (0.00-0.68); EOSINOPHILS PERCENT AUTO 3 % (0-6); Hematocrit 33.3 % (37.0-53.0); Hemoglobin 10.9 g/dL (13.5-17.5); IMMATURE GRAN ABSOLUTE AUTO 0.01 K/mm3 (0.00-0.10); IMMATURE GRAN PERCENT AUTO 0 % (0-1); LYMPHOCYTES ABSOLUTE AUTO 1.71 K/mm3 (0.84-5.20); LYMPHOCYTES PERCENT AUTO 32 % (21-46); MONOCYTES PERCENT AUTO 15 % (4-13); Mean Corpuscular HGB 31.8 pg (26.0-34.0); Mean Corpuscular HGB Conc 32.7 g/dL (31.5-36.5); Mean Corpuscular Volume 97 fL (80-100); Mean Platelet Volume 9.9 fL (9.1-12.4); NEUTROPHILS ABSOLUTE AUTO 2.54 K/mm3 (1.96-9.15); NEUTROPHILS PERCENT AUTO 48 % (41-73); Platelet Count 172 K/mm3 (150-400); RDW Coefficient Variation 12.5 % (11.7-14.2); RDW Standard Deviation 44.7 fL (35.1-46.3); Red Blood Cell Count 3.43 M/mm3 (4.30-5.90); White Blood Cell Count 5.27 K/mm3 (4.00-11.30)
[2020-04-08 05:36] LABS: Anion Gap 8 mmol/L (6-16); Blood Urea Nitrogen 27 mg/dL (8-24); Bun/Creatinine Ratio 31.8 (12.0-20.0); CO2, Blood 25 mmol/L (21-32); Calcium, Blood 8.3 mg/dL (8.5-10.1); Chloride, Blood 107 mmol/L (98-108); Creatinine, Blood 0.85 mg/dL (0.60-1.20); Glomerular Filtration Rate >60 (60-); Glucose, Blood 101 mg/dL (70-99); Sodium, Blood 140 mmol/L (136-145)
--- NOTE | 2020-04-08 05:56 | NUR ---
PT with hx of multiple falls with afib RVR was transferred from PCU unit yesterday. PT has hypotension proantimine helpful to normalize BP. PT CO pelvic pain 9/10 with any movement PT says pain started after recent fall. Tylenol 650 mg helpful to promote sleep. PT took ensure with setup & assist, meds whole in pudding or applesauce. Continues on tele monitor with PT in AFIB rates in 90s no RVR. 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 PT has hx of multiple falls with injury, hx of subarachnoid bleed in Jan 2020. Fall precautions continue. Did not start bladder training last night because PT asked to start bladder training in AM & inability to move without acute pain. murray patent draining.
--- NOTE | 2020-04-08 18:33 | NUR ---
SHIFT SUMMARY- PT ALERT AND ORIENTED TO SELF AND FAMILY. PT VERY FORGETFUL. PT HAS BEEN RECIEVING SCHEDULED MIDODRIENE T/O THE SHIFT, LAST SUPINE SBP 134. PER MIDODRIENE SHOULD BE HELD IF SBP IS OVER 140. PT NOW HAS SCHEDULED TYLENOL BID. XRAY OF PELVIS AND HIP SHOWED NO FRACTURE BUT YES ARTHRITIS. PT C/O PAIN WITH MOVEMENT 8/10 BUT A 2/10 WHILE AT REST. PT DOES NOT WANT TO MOVE D/T THE PAIN. DR AWARE NO BLADDER TRAINING HAS BEEN STARTED THE PT IS TOO PAINFULL TO MOVE AND WITH THE URINARY RETENTION HE HAS, PLAN IS TO MANAGE THE PAIN AND ORTHOSTATIC HYPOTENSIVE EPISODES THAT KEEP CAUSING FALLS. UNCERTAIN OF DISCHARGE PLAN AT THIS TIME. WILL PASS ON TO NIGHT RN IN BEDSIDE REPORT.
--- NOTE | 2020-04-09 04:47 | NUR ---
Patient had minimal discomfort 2-3/10 overnight. States pain very exacerbates to 9-10/10 with movement to edge of bed or BSC. Thinks Max Strength APAP helped yesterday evening. SBP at shift change last evening was 159/74 with HR of 90. 2 hours later, BP checked manually, and BP was 138/54 with a HR on telemetry ( supine) of A Fib 88. Both Metoprolol and Cozaar were given at HS. Patient slept well. Domínguez cath clamped X3-4 hours overnight. patient tolerated well. No time spent OOB, so no Orthostatic VS were taken
[2020-04-09 05:44] LABS: Anion Gap 5 mmol/L (6-16); Blood Urea Nitrogen 21 mg/dL (8-24); Bun/Creatinine Ratio 25.4 (12.0-20.0); CO2, Blood 28 mmol/L (21-32); Calcium, Blood 8.6 mg/dL (8.5-10.1); Chloride, Blood 109 mmol/L (98-108); Creatinine, Blood 0.83 mg/dL (0.60-1.20); Glomerular Filtration Rate >60 (60-); Glucose, Blood 94 mg/dL (70-99); Potassium, Blood 4.2 mmol/L (3.5-5.5); Sodium, Blood 142 mmol/L (136-145)
--- NOTE | 2020-04-09 18:05 | NUR ---
04/09/[address] Salinas and PT evaluation, patient improved and mobilizing the halls 200 feet, min assist. Still has murray catheter. Plans to clamp and trial tonight. ETA discharge home Monday. In my conversation with Yulissa today by phone, she would like [facility] health services, she does not want him to come home unless he can urinate on his own. Discussed that home health could help with catheter care if he needs to go home with one. She was not pleased and prefers he not come home with one. Left [facility] provider letter in room. updated white board in room, Will follow with patient tomorrow for transition of care letter for [place] and discharge assistance. cp
--- NOTE | 2020-04-09 18:53 | NUR ---
PATIENT A/OX4, UP WITH FWW AND GB THIS SHIFT. WALKED IN A SHORT DISTANCE IN HALLS WITH PT. TOLERATING CARDIAC DIET. B/P STABLE TODAY. TELE D/C'D. RAI IN PLACE, WILL BLADDER TRAIN THROUGH THE NIGHT WITH POSSIBLE DC OF RAI IN AM. PATIENT TAKES PILLS WHOLE WITH WATER. SCHEDULED TYLENOL WORKING WELL TO TREAT HIP PAIN. FALL PRECAUTIONS IN PLACE. POSSIBLE DC TOMORROW. IV TO L FA WNL AND SL.
--- NOTE | 2020-04-10 06:47 | NUR ---
Jimmie slept well waking about every 2 hours to request murray cath be unclamped. About 50% of the time, patient would have between 150-200 out. Patient is more alert today and less slow to respond. Had large and one medium formed somewhat firm stools before HS. Looking forward to discharge. No complaints of discomfort other that chronic hip pain which the patient stated was better than usual
--- NOTE | 2020-04-10 17:43 | NUR ---
Supportive Visit Pt resting in bed upon arrival. Pt denies pain at this time. Pt reports pain with exertion in his hip. Pt denies dyspnea and anxiety. Engaged in therapeutic listening as Pt shared stories from the past. Pt reports originaly from [place] then moved to [place] with his family. Pt lived there until graduating high school moving to [place] with his mother. 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 Pt is and has 2 sons. One lives in [facility] and the other lives in [place]. Continued therapeutic listening. Engaged in therapeutic discussion regarding considering completing POLST. Pt denies need to complete a POLST at this time. Pt expresses appreciation of visit and reports no other concerns at this time. Spoke with Bedside RN Alexandra and discussed case. Palliative Care will remain available.
--- NOTE | 2020-04-10 18:25 | NUR ---
04/10/20 Sang campa, s/w Alexandra nurse, she is trying to complete bladder training. Dr Quiros will discharge today if can urinate on his ow. Patient out with physical therapy during my visit. Left randy letter for discharge. requested [facility] yesterday. s/w Sharri at [facility] to provide services at discharge. Monday or Monday
--- NOTE | 2020-04-10 18:45 | NUR ---
NO ACUTE CHANGES THIS SHIFT. HYPOTENSION HAS IMPROVED. RAI D/C'D AND PATIENT IS VOIDING. FALL PRECAUTIONS IN PLACE, PATIENT CALLS APPRORIATELY FOR ASSISTANCE. REPORTS PAIN TO HIPS HAS IMPROVED SIGNIFICANTLY AND SCHDULED TYLENOL WORKS WELL TO TREAT. PATIENT HOPES TO D/C HOME TOMORROW WITH HOME HEALTH. [employer] VERY ATTENTIVE AND INVOLVED IN PATIENTS CARE.
--- NOTE | 2020-04-11 06:48 | NUR ---
SHIFT SUMMARY: PATIENT IS A&OX3, VSS, REPORTS DIZZINESS WHEN SITTING UP. ENC. TO GET UP SLOWLY. USING THE URINAL BUT SPILLS AT TIMES. BED ALARM IS ON FOR SAFETY.
[2020-04-11] MEDS ORDERED: ATOR20 PO (15:24)
[2020-04-11] MEDS ORDERED: SULTRIDS PO (15:25)
[2020-04-11] MEDS ORDERED: TAMS.4ER PO (15:25)
[2020-04-11] MEDS ORDERED: SPIR25 PO (15:25)
--- NOTE | 2020-04-11 16:21 | NUR ---
DISCHARGED HOME. PRESENT FOR DISCHARGE EDUCATION. ALL QUESTIONS ANSWERED. DETAILED MEDICATION LIST PROVIDED, PER REQUEST WITH TEACHBACK EDUCATION COMPLETED. REQUESTS HOME HEALTH VISIT MONDAY, CASE MANAGEMENT NOTIFIED OF REQUEST. AND PT VERBALIZED UNDERSTANDING OF DISCHARGE INSTRUCTIONS AND LEFT WITH ALL PERSONAL BELONGINGS IN THEIR POSSESSION. RX'S CONFIRMED CALLED IN TO [facility].
[2020-04-15 15:11] LABS: 25-HYDROXY, VITAMIN D 38 ng/mL (.); 25-HYDROXY, VITAMIN D-2 <1.0 ng/mL (.); 25-HYDROXY, VITAMIN D-3 38 ng/mL (.)
== END 2020-04-11 16:21 | disposition home health service (06) | DRG 689 ==
LOC: ER 09:34 → MEDS 14:44 → PCU 14:44 → MEDS 04-07 15:27
PROVIDERS: Emergency Medicine; Hospitalist; ADMIT Internal Medicine
DX: N39.0 Urinary tract infection, site not specified (principal); I50.23 Acute on chronic systolic (congestive) heart failure; I48.91 Unspecified atrial fibrillation; I25.10 Atherosclerotic heart disease of native coronary artery without angina pectoris; Z86.718 Personal history of other venous thrombosis and embolism; J45.909 Unspecified asthma, uncomplicated; Z95.1 Presence of aortocoronary bypass graft; Z95.0 Presence of cardiac pacemaker; Z79.82 Long term (current) use of aspirin; Z66 Do not resuscitate; D64.9 Anemia, unspecified; N40.0 Benign prostatic hyperplasia without lower urinary tract symptoms; I95.1 Orthostatic hypotension; I11.0 Hypertensive heart disease with heart failure; H35.30 Unspecified macular degeneration; N28.1 Cyst of kidney, acquired; B96.89 Other specified bacterial agents as the cause of diseases classified elsewhere
CPT/HCPCS: 36415; 51702; 51798; 71045; 73502; 73700; 76770; 80048; 80053; 80162; 81001; 82306; 82330; 83605; 83735; 83880; 83970; 84100; 84443; 84484; 85025; 87077; 87086; 87186; 93005; 93010; 93306; 94640; 94760; 96365-59; 96375-59; 97110; 97116; 97162; 97166; 97530; 97535; 99285-25; A9270; J0696; J1650; J1940; J7030